=== PATIENT | female | born 1995 | race Caucasian/White ===

== ENCOUNTER 2016-12-09 14:44 | Day surgery (SDC) | payer OTHER ==
[~2016-12-09] VITALS: Ht 162.6 cm; Wt 63.2 kg
[2016-12-09] VITALS (10 sets, daily range): BP systolic 109–136; BP diastolic 51–79; PULSE 81–108; TEMP 97.1–98
[~2016-12-09 14:44] MED LIST: ATARAX 25MG25 MG/TAB PO; PROAIR HFA0.09 MG/AC IH; ZOLOFT 25MG25 MG PO
[2016-12-09] MEDS ORDERED: ZYRTEC 10MG10 MG PO (15:27)
== END 2016-12-09 22:00 | disposition home or self-care (01) ==
LOC: SDCO 14:44 → SURG 17:30 → SDCO 18:00
DX: R31.0 Gross hematuria (principal); J45.909 Unspecified asthma, uncomplicated; Z87.440 Personal history of urinary (tract) infections; Z79.899 Other long term (current) drug therapy
CPT/HCPCS: OP; J0690; J1100; J2270; J2405; J2704; J3010; J7120; Q9967

== ENCOUNTER → 2016-12-23 | Outpatient (CLI) | payer OTHER ==
[~2016-12-23] MED LIST changes: +ZYRTEC 10MG10 MG PO
== END ==
LOC: COL.RAD 08:15
DX: Z31.41 Encounter for fertility testing (principal)
CPT/HCPCS: Q9967